=== PATIENT | female | born 1955 | race Caucasian/White ===

== ENCOUNTER 2023-03-02 07:18 | Emergency (ER) | payer OTHER, MEDICAID ==
[~2023-03-02] VITALS: Ht 165.1 cm; Wt 70.8 kg
[~2023-03-02 07:18] MED LIST: ACET-2634 PO; CYCL10TA24 PO; HYDR-3917 PO; IBUP-1969 PO; LIDOINT TP
--- NOTE | 2023-03-02 07:30 | NUR ---
Patient brought in by self from home. Chief Complaint: n/v x 3d with generalized body pain and MORRISON 10/10. Patient a&ox4 stable, placed on monitor bedrails up.
--- NOTE | 2023-03-02 07:32 | NUR ---
ER Dr. Lucio at bedside examining patient.
[2023-03-02 07:36] VITALS: BP_SYST 165
--- NOTE | 2023-03-02 07:40 | NUR ---
EKG performed and Covid and flu collected and taken to lab.
[2023-03-02] MEDS ORDERED: ONDANSETRON 4 MG ODT TAB PO ONE (07:45)
[2023-03-02] MEDS ORDERED: KETOROLAC TROMETHAMINE 30 MG VIAL IM ONE (07:45)
--- NOTE | 2023-03-02 08:02 | NUR ---
COVID AND FLU NASAL SWABS COLLECTED AT BEDSIDE AND SENT TO LAB
[2023-03-02 08:15] LABS: BASOPHILS % (AUTO) 0.3 % (0.0-2.0); EOSINOPHILS % (AUTO) 0.6 % (0.0-4.0); HEMATOCRIT 42.2 % (36-48); HEMOGLOBIN 14.1 g/dL (12.0-16.0); LYMPHOCYTES # (AUTO) 2.1 K/uL (1.0-5.5); LYMPHOCYTES % (AUTO) 26.7 % (20.5-51.5); MEAN CORPUSCULAR HEMOGLOBIN 28 pg (27-31); MEAN CORPUSCULAR HGB CONC 33 % (32-36); MEAN CORPUSCULAR VOLUME 84 fL (79.0-98.0); MONOCYTES # (AUTO) 0.4 K/uL (0.0-1.0); MONOCYTES % (AUTO) 5.3 % (1.7-9.3); NEUTROPHILS # (AUTO) 5.4 K/uL (1.8-7.7); NEUTROPHILS % (AUTO) 67.1 % (40.0-70.0); PLATELET COUNT (AUTO) 318 K/uL (130-430); RED BLOOD CELL COUNT(AUTO) 5.05 MIL/uL (4.2-6.2); RED CELL DISTRIBUTION WIDTH 13.6 % (9.0-15.0)
[2023-03-02 08:31] LABS: ANION GAP 10 (5-15); CALCIUM 9.2 mg/dL (8.4-11.0); CHLORIDE 103 mmol/L (98-107); CREATININE 0.69 mg/dL (0.55-1.30); GFR AFRICAN AMERICAN 110 mL/min (>90); GLUCOSE 185 mg/dL (70-99); UREA NITROGEN, BLOOD 14 mg/dL (8-21)
[2023-03-02 08:38] LABS: ALANINE AMINOTRANSFERASE 21 U/L (12-78); ALBUMIN 3.2 g/dL (3.4-4.8); ASPARTATE AMINOTRANSFERASE 11 U/L (10-37); LIPASE 65 U/L (73-393)
[2023-03-02] MEDS ORDERED: ONDA-8 TL (09:12)
[2023-03-02] MEDS ORDERED: LIDOINT TP (09:12)
[2023-03-02] MEDS ORDERED: ACET325T PO (09:12)
[2023-03-02] MEDS ORDERED: NAPR-1172 PO (09:12)
[2023-03-02 09:50] VITALS: BP_SYST 167
--- NOTE | 2023-03-02 09:50 | NUR ---
Post toradol assessment patient states level pain level has decreased /10.
--- NOTE | 2023-03-02 10:11 | NUR ---
Patient given written and verbal discharge instructions and verbalizes understanding. ER MD Lucio discussed with patient the results and treatment provided. Patient in stable condition. ID arm band removed. Rx of Acetaminophen, Naproxen, lidocaine, and zofran given. Patient educated on pain management and to follow up with PMD. Opportunity for questions provided and answered. Medication side effect fact sheet provided.
== END 2023-03-02 10:11 | disposition home or self-care (01) ==
LOC: SED 07:18
DX: G89.29 Other chronic pain (principal); R11.2 Nausea with vomiting, unspecified; F32.A Depression, unspecified; E11.9 Type 2 diabetes mellitus without complications; I10 Essential (primary) hypertension; Z88.2 Allergy status to sulfonamides; Z91.041 Radiographic dye allergy status; Z79.899 Other long term (current) drug therapy; Z20.822 Contact with and (suspected) exposure to COVID-19
CPT/HCPCS: 99285; 71045; 87426; 80053; 83690; 85025; 84484; 36415; 93005; 96372; 87804 ×2; Q0162; J1885

== ENCOUNTER 2023-04-06 10:01 | Emergency (ER) | payer OTHER, MEDICAID ==
[~2023-04-06] VITALS: Ht 167.6 cm; Wt 90.7 kg
[~2023-04-06 10:01] MED LIST changes: +ACET325T PO; +NAPR-1172 PO; +ONDA-8 TL
--- NOTE | 2023-04-06 10:16 | NUR ---
Pt BIB self from home. C/O R thumb pain. Pt states to have fallen at home over a month ago, but pain hasnt subsided. Pain 10/10 with activity of hand. Pt denies taking medication for pain relief. Pt has full ROM in R arm, but cannot close or open hand without pain. Pt denies N/V/D. Pt has extended medical hx, DM, HTN, depression. Pt VSS. Pt AAOX4. Pt speaking full complete sentences. Pt in bed with side rails up.
[2023-04-06 10:17] VITALS: BP_SYST 156
--- NOTE | 2023-04-06 10:21 | NUR ---
ER at bedside examining patient.
[2023-04-06] MEDS ORDERED: cefTRIAXone 1 GM in LIDOCAINE 1%, 20 ML MDV 2.1 ML IM ONE (10:30)
[2023-04-06] MEDS ORDERED: CEPH-548 PO (11:05)
[2023-04-06 11:10] VITALS: BP_SYST 156
--- NOTE | 2023-04-06 12:00 | NUR ---
Patient given written and verbal discharge instructions and verbalizes understanding. ER MD discussed with patient the results and treatment provided. Patient in stable condition. ID arm band removed. Patient educated on pain management and to follow up with PMD. Opportunity for questions provided and answered. Medication side effect fact sheet provided.
== END 2023-04-06 12:00 | disposition home or self-care (01) ==
LOC: SED 10:01
DX: L03.113 Cellulitis of right upper limb (principal); M79.631 Pain in right forearm; E11.9 Type 2 diabetes mellitus without complications; I10 Essential (primary) hypertension; Z91.040 Latex allergy status; Z88.2 Allergy status to sulfonamides; Z79.899 Other long term (current) drug therapy
CPT/HCPCS: 99283; 96372; J0696; J2001

== ENCOUNTER 2024-01-15 05:01 | Emergency (ER) | payer OTHER, MEDICAID ==
[~2024-01-15] VITALS: Ht 167.6 cm; Wt 86.2 kg
[~2024-01-15 05:01] MED LIST changes: +CEPH-548 PO
[2024-01-15 05:12] VITALS: BP_SYST 128; PULSE 93; RESP 16; TEMP 98.6; O2SAT 96
[2024-01-15 06:46] LABS: BASOPHILS % (AUTO) 0.6 % (0.0-2.0); EOSINOPHILS # (AUTO) 0.2 K/uL (0.0-0.4); EOSINOPHILS % (AUTO) 2.8 % (0.0-4.0); HEMATOCRIT 38.7 % (36-48); HEMOGLOBIN 13.2 g/dL (12.0-16.0); LYMPHOCYTES # (AUTO) 1.8 K/uL (1.0-5.5); LYMPHOCYTES % (AUTO) 28.2 % (20.5-51.5); MEAN CORPUSCULAR HEMOGLOBIN 29 pg (27-31); MEAN CORPUSCULAR HGB CONC 34 % (32-36); MEAN CORPUSCULAR VOLUME 85 fL (79.0-98.0); MONOCYTES # (AUTO) 0.4 K/uL (0.0-1.0); MONOCYTES % (AUTO) 6.3 % (1.7-9.3); NEUTROPHILS # (AUTO) 3.9 K/uL (1.8-7.7); NEUTROPHILS % (AUTO) 62.1 % (40.0-70.0); PLATELET COUNT (AUTO) 351 K/uL (130-430); RED BLOOD CELL COUNT(AUTO) 4.54 MIL/uL (4.2-6.2); RED CELL DISTRIBUTION WIDTH 13.3 % (9.0-15.0); WHITE BLOOD COUNT (AUTO) 6.3 K/uL (4.8-10.8)
[2024-01-15 06:59] LABS: ANION GAP 10 (5-15); CALCIUM 9.6 mg/dL (8.4-11.0); CARBON DIOXIDE 29 mmol/L (23-29); CHLORIDE 107 mmol/L (98-107); GFR AFRICAN AMERICAN 92 mL/min (>90); GLUCOSE 128 mg/dL (74-106); POTASSIUM 4.4 mmol/L (3.5-5.1); SODIUM SERUM 146 mmol/L (136-145); UREA NITROGEN, BLOOD 20 mg/dL (8-21)
[2024-01-15 07:00] LABS: GFR NON AFRICAN-AMERICAN 76 mL/min (>90)
[2024-01-15 07:06] LABS: ALANINE AMINOTRANSFERASE 21 U/L (12-78); ALBUMIN 3.3 g/dL (3.4-4.8); ASPARTATE AMINOTRANSFERASE 12 U/L (10-37); TOTAL BILIRUBIN 0.6 mg/dL (0.0-1.0); TOTAL PROTEIN, SERUM 7.1 g/dL (6.4-8.3)
[2024-01-15] MEDS ORDERED: TRAM50TA2 PO (07:22)
[2024-01-15] MEDS: IBUPROFEN 600 MG TABLET PO ONE (07:34)
[2024-01-15 07:44] VITALS: BP_SYST 128; PULSE 93; RESP 16; TEMP 98.6; O2SAT 96
== END 2024-01-15 07:40 | disposition home or self-care (01) ==
LOC: SED 05:01
DX: S20.212A Contusion of left front wall of thorax, initial encounter (principal); S40.012A Contusion of left shoulder, initial encounter; S80.11XA Contusion of right lower leg, initial encounter; I10 Essential (primary) hypertension; E11.9 Type 2 diabetes mellitus without complications; Z91.040 Latex allergy status; Z88.2 Allergy status to sulfonamides; Z79.899 Other long term (current) drug therapy; W10.9XXA Fall (on) (from) unspecified stairs and steps, initial encounter; Y93.89 Activity, other specified; Y92.89 Other specified places as the place of occurrence of the external cause; Y99.8 Other external cause status
CPT/HCPCS: 36415; 71045; 71100; 72110; 73030; 73590; 80053; 84484; 85025; 93005; 99285